=== PATIENT | male | born 1970 | race Caucasian/White ===

== ENCOUNTER → 2016-10-05 | Outpatient (CLI) | payer BC ==
[~2016-10-05] MED LIST: CIPR-255 PO; DOCU-94 PO; LEVO88TA3 PO; LISI40TA PO
[2016-10-05 09:34] LABS: HEMATOCRIT 43.6 % (42-52); MEAN CELL VOLUME 88.8 fL (80-100); MEAN CORPUSCULAR HEMOGLOBIN 29.7 pg (25-34); MEAN CORPUSCULAR HGB CONC 33.5 g/dl (32-36); MEAN PLATELET VOLUME 9.8 fL (7.4-10.4); PLATELET COUNT 199 K/uL (130-400); RED BLOOD COUNT 4.91 M/uL (4.7-6.1); WHITE BLOOD COUNT 6.54 K/uL (4.8-10.8)
[2016-10-05 10:11] LABS: ALT/SGPT 26 U/L (12-78); AST/SGOT 16 U/L (15-37); BLOOD UREA NITROGEN 18 mg/dl (7-18); BUN/CREATININE RATIO 20.3 (10-20); CALCIUM 8.5 mg/dl (8.5-10.1); CARBON DIOXIDE 29 mmol/L (21-32); CHLORIDE 110 mmol/L (98-107); GLUCOSE 99 mg/dl (70-99); POTASSIUM 4.1 mmol/L (3.5-5.1); SODIUM 143 mmol/L (136-145)
[2016-10-05 10:20] LABS: ALB/GLOB RATIO 1.1 (0.9-2); ALKALINE PHOSPHATASE 54 U/L (45-117); CHOLESTEROL 172 mg/dl (0-200); CHOLESTEROL/HDL RATIO 2.8; FERRITIN 225.6 ng/ml (8.0-388.0); HDL CHOLESTEROL 62 mg/dl; LDL CHOLESTEROL CALCULATED 99 mg/dl; TRIGLYCERIDES 56 mg/dl (0-150); VERY LOW DENSITY LIPOPROT CALC 11 mg/dl
== END | disposition home or self-care (01) ==
LOC: C.LAB1850 08:18
PROVIDERS: ATTEND Family Medicine
DX: R31.9 Hematuria, unspecified (principal); K57.90 Diverticulosis of intestine, part unspecified, without perforation or abscess without bleeding; E03.9 Hypothyroidism, unspecified; R53.83 Other fatigue; Z13.9 Encounter for screening, unspecified

== ENCOUNTER → 2017-12-02 | Outpatient (CLI) | payer BC ==
--- NOTE | 2017-12-02 14:08 | DIAGNOSTIC IMAGING REPORT ---
L SHOULDER MIN 2 VIEWS CLINICAL HISTORY: Left shoulder pain. COMPARISON: Left shoulder radiograph September 27, 2010. FINDINGS: Alignment of the left shoulder is anatomic. There is no fracture or suspicious lesion. There is joint space narrowing and osteophytosis of the acromioclavicular joint. The glenohumeral joint space is preserved. IMPRESSION: 1. No acute fracture or dislocation of the left shoulder. 2. Mild to moderate osteoarthritis of the left acromioclavicular joint. Electronically signed by: Miguel Aguirre M.D. 12/02/2017 2:06 PM Dictated Date/Time: 12/02/2017 2:00 PM
== END | disposition home or self-care (01) ==
LOC: C.RDSM 13:25
PROVIDERS: ATTEND Physician Assistant
DX: M19.012 Primary osteoarthritis, left shoulder (principal)

== ENCOUNTER → 2017-12-11 | Outpatient (CLI) | payer BC ==
[~2017-12-11] MED LIST changes: +GADAVIST IV PRN
--- NOTE | 2017-12-11 12:04 | DIAGNOSTIC IMAGING REPORT ---
LEFT SHOULDER INJECTION UNDER FLUOROSCOPIC GUIDANCE CLINICAL HISTORY: Left shoulder pain. Injection for MR arthrogram. PROCEDURE: The risks, benefits, and alternatives to the procedure were discussed with the patient. Written informed consent was obtained. The patient was placed supine on the fluoroscopy table, and a left shoulder injection was performed under fluoroscopic guidance. The area was prepped and draped in the usual sterile fashion. The skin and soft tissues anesthetized with local 1% lidocaine. The left shoulder joint was accessed utilizing a 22-gauge needle, and approximately 6 cc of a mixture of gadolinium contrast, Optiray 300, and saline was injected into the joint space under fluoroscopic guidance. There was normal distention of the capsule. A single spot fluoroscopic image was captured. The procedure was well tolerated and without immediate complication. The patient was then transferred to MRI for MR arthrography. FLUOROSCOPY TIME: 31 seconds. IMPRESSION: Successful injection of the left shoulder under fluoroscopic guidance. Electronically signed by: Macario Severino M.D. 12/11/2017 12:02 PM Dictated Date/Time: 12/11/2017 12:01 PM
--- NOTE | 2017-12-11 12:48 | DIAGNOSTIC IMAGING REPORT ---
LEFT SHOULDER MRI with INTRA-ARTICULAR CONTRAST HISTORY: Left SHOULDER PAIN TECHNIQUE: Multiplanar multisequence MRI of the left shoulder was performed following the intra-articular injection of contrast. COMPARISON STUDY: Left shoulder 12/02/2017. FINDINGS: AC joint: Moderate AC joint arthrosis to measure by joint space narrowing with subchondral edema. There are small marginal osteophytes. Rotator cuff: The supraspinatus, infraspinatus, teres minor tendons are intact. There is a full-thickness tear at the majority of the distal subscapularis tendon without significant retraction. Labrum: Truncated and abnormal signal within the posterior superior labrum consistent with a tear. There is also fraying of the inferior labrum secondary to degeneration/tear. Biceps: Medial dislocation of the long head of the biceps tendon which is anterior to the glenohumeral joint and extends through the full-thickness tear of the subscapularis tendon. There is also increased T2 signal within the proximal long head of the biceps tendon consistent with a partial tear. Bones: No fracture or dislocation. Cartilage: Intact Miscellaneous: Best seen on coronal image 11 there is a tear of the posterior fibers of the inferior glenohumeral ligament. This is consistent with humeral avulsion of the glenohumeral ligament (HAGL). IMPRESSION: 1. Medial dislocation of the partially torn long head of the biceps tendon which is anterior to the glenohumeral joint and extends through the full-thickness tear of the subscapularis tendon. 2. Labral tears as described above. 3. Tear through the posterior fibers of the inferior glenohumeral ligament (HAGL). Electronically signed by: Adan Rodrigues M.D. 12/11/2017 12:46 PM Dictated Date/Time: 12/11/2017 12:29 PM
== END | disposition home or self-care (01) ==
LOC: C.MRIBC 10:41
PROVIDERS: ATTEND Physician Assistant
DX: M75.82 Other shoulder lesions, left shoulder (principal); S46.112A Strain of muscle, fascia and tendon of long head of biceps, left arm, initial encounter; X58.XXXA Exposure to other specified factors, initial encounter; S46.012A Strain of muscle(s) and tendon(s) of the rotator cuff of left shoulder, initial encounter; S43.432A Superior glenoid labrum lesion of left shoulder, initial encounter

== ENCOUNTER → 2017-12-24 | Day surgery (SDC) | payer BC ==
[2017-12-20 08:30] VITALS: Ht 170.2 cm; Wt 83.6 kg
[~2017-12-24] VITALS: Ht 170.2 cm; Wt 83.6 kg
[~2017-12-24] MED LIST changes: +ATROPINE SULFATE 0.1 MG/ML 5ML SYR IV PRN; +BUPR150T5 PO; +CEFAZOLIN 2000MG IV PUSH 15 ML IV SCH; +CHOL100010 PO; -CIPR-255 PO; +DEXAMETHASONE SOD INJ 4 MG/ML VIAL ONE; -DOCU-94 PO; +EpHEDrine SULFATE INJ 50 MG/ML AMP IV PRN; +EpINEphrine INJ 1MG/ML AMP 1 MG/ML AMP ONE; +FENTANYL CITRATE INJ 50 MCG/1 ML 2 ML VIAL ONE; -GADAVIST IV PRN; +HYDR12.55 PO; +HYDROmorphone INJ 2 MG/ML SYR/VIAL IV PRN; +KETOROLAC TROMETHAMINE 30 MG/ML VIAL IV. PRN; +LACTATED RINGER'S 1000ML 1,000 ML IV SCH; +LEVO150T9 PO; -LEVO88TA3 PO; +LIDOCAINE 2% 20 MG/ML 5ML SYR ONE; +LIDOCAINE HCL 1% MPF 2 ML VIAL ONE; +MIDAZOLAM HCL 1 MG/ML 2ML VIAL ONE; +OMEG10007 PO; +ONDANSETRON INJ 2 MG/ML 2 ML VIAL IV PRN; +ONDANSETRON INJ 2 MG/ML 2 ML VIAL ONE; +OXYCODONE/ACETAMINOPHEN 5-325 TAB PO ONE; +PHENYLEPHRINE 100MCG/ML 5ML SYR IV PRN; +PHENYLEPHRINE HCL INJ 10 MG/ML VIAL ONE; +PROPOFOL IV EMULSION 10 MG/ML 20 ML VIAL ONE; +ROPIVACAINE 0.5% 5 MG/ML 30 ML VIAL ONE; +SODIUM CHLORIDE 0.9% 1000ML 1,000 ML IV SCH
--- NOTE | 2017-12-24 06:49 | Discharge Instructions ---
Discharge Instructions Date of Service Dec 24, 2017. Visit Reason for Visit: Left Shoulder Subscapularis Tear, Biceps Tear Discharge Discharge Diagnosis / Problem: same Discharge Goals Goal(s): Improve function, Improve disease control Medications Stopped Medications Name(s): na Restart Stopped Medication(s): use scripts as directed Activity Recommendations Activity Limitations: as noted below Lifting Limitations: until after follow-up appointment Exercise/Sports Limitations: until after follow-up appointment May Resume Sexual Activity: when tolerated Shower/Bathe: keep incision dry Driving or Machine Use: Anesthesia . Post Anesthesia Instructions: If you have had General Anesthesia or IV Sedation: * Do not drive today. * Resume driving when surgeon permits. * Do not make important decisions or sign legal documents today. * Call surgeon for: 1. Temperature elevations greater than 101 degrees F. 2. Uncontrollable pain. 3. Excessive bleeding. 4. Persistent nausea and vomiting. 5. Medication intolerance (nausea, vomiting or rash). * For nausea and vomiting use only clear liquids such as: tea, soda, bouillon until nausea subsides, then gradually increase diet as tolerated. * If you have any concerns or questions, call your surgeon's office. If physician is unavailable and it is an emergency, call 911 or go to the nearest emergency room. . Instructions / Follow-Up Instructions / Follow-Up The following are instructions to follow after "Shoulder Surgery" including, Acromioplasty, Rotator Cuff Repair and Instability Surgery ACTIVITY RECOMMENDATIONS: * Minimize activity after surgery. * No excessive walking, jogging, sports or laboring. * Return to activity is individualized depending on the patient and type of surgery. * Driving is not permitted until at least your first post operative visit. Please ask your doctor when it is safe to resume driving. * Expect increased discomfort with increased activity. Continue to ice the shoulder as needed. SCHOOL/WORK RECOMMENDATIONS: * You may return to sedentary work or school when you are feeling more comfortable. This is usually 3-7 days after surgery. MEDICATIONS: * You will have a prescription for pain medication and an anti-inflammatory medication after surgery. * Use the pain medication for severe pain and the anti-inflammatory for less severe pain. Once the pain medication has run out, try to use the anti-inflammatory medication. If this is not effective, contact the office for assistance. * The pain medication may cause nausea, constipation and drowsiness. You should see how they affect you before driving or similar activity. * The anti-inflammatory medication may cause stomach upset and bleeding. If this occurs let your doctor know immediately . * Take a stool softener like Colace or a laxative like Senokot to prevent constipation. DIET: * Resume previous diet. SPECIAL CARE: ICE: You have the option of an ice cooler, gel packs or ice bags. * If you have an ice cooler, refer to the instructions for that device. The ice cooler may be used continuously. * If you do not have an ice cooler, you will need to use ice bags or gel packs. Do not apply ice directly to the skin. Use a thin dressing or adonay shirt between the skin and ice bag. Apply ice for 20-30 minutes and repeat every 2-4 hours. This is especially important for the first 7-10 days after surgery. Once the pain improves, use ice as needed. ELEVATION: * You may be more comfortable sleeping in an upright position. Use the sling to elevate your arm. DRESSING: * Your dressing will be changed at your first therapy appointment approximately 4-5 days after surgery. Band-aids, tape strips or gauze may be applied. You may then change your dressing daily. * Reapply dressing followed by the EBIce cooling pad (if chosen) and then the sling. * Always wash your hands prior to touching the incision area. * Once the stitches are removed, you may leave the wound open to air or cover with gauze. * Expect some bloody drainage for the first few days after surgery. * Leave the tape strips, if present, in place for 5-7 days. * Band-aids and gauze may be changed daily. * There may be a gauze pad in your armpit area. This can be changed daily or replaced by a dry washcloth. SLING/BRACE: * You will need to use a sling or brace after surgery. The length of time the sling is used is dependent upon the type of surgery performed. * Arthroscopic Acromioplasty requires use of the sling for 2-4 weeks for comfort. * Labral procedures and Rotator Cuff Repairs require use of the sling for a longer period of time. Please check with your doctor prior to discontinuing the sling. BATHING: * You may shower or sponge-bathe immediately after surgery. The post operative shoulder dressing is mostly water-tight. You may shower right over this dressing, but be reasonably careful not to get the gauze or incision wet. * Once the dressing has been changed on the fourth or fifth day after surgery, you may shower and get the incision wet. * Wash with regular soap and water. * Do not bathe (submerge the incision), soak, swim or use a hot tub until the incision is completely healed over with normal skin and the doctor has given the OK to proceed. * There is no need to apply any ointments, powders or salves to your incision. * Do not apply alcohol or hydrogen peroxide directly to the incision. * Diluted peroxide (50:50 mixture with sterile saline) may be used to clean dried blood from around the incision area. THERAPY: * You will begin therapy four or five days after surgery. * Organized therapy with the therapist is important for the first 2-4 months after surgery depending on the type of procedure. During that time you will attend therapy 1-3 times per week. * You will also need to do daily exercises for range of motion and strength as instructed. * Patients who have a Capsular Shift Procedure will need to abide by temporary range of motion limitations. * Patients having Rotator Cuff Surgery are not allowed to actively lift their arms until 4-6 weeks after surgery. * Please check with your doctor regarding appropriate motion restrictions. FOLLOW UP VISIT: * If not already scheduled, please call the office at to schedule a follow-up appointment for 10 days after surgery and monthly thereafter. Diet Recommendations Recommended Home Diet: resume previous diet Procedures Procedures Performed: see op note Pending Studies Studies pending at discharge: no Medical Emergencies . Who to Call and When: Medical Emergencies: If at any time you feel your situation is an emergency, please call 911 immediately. . Non-Emergent Contact Non-Emergency issues call your: Specialist Call Non-Emergent contact if: temperature is above 101.5, wound has increased drainage, wound has increased redness, wound has increased pain . . "Provider Documentation" section prepared by Fermin Woo. .
--- NOTE | 2017-12-24 07:42 | History & Physical Bridge Note ---
H&P Re-Evaluation Bridge Note: I have examined the patient, reviewed the History & Physical and in the interval since the performance of the History & Physical I have noted the following changes of clinical significance: consent obtained.No changes noted
--- NOTE | 2017-12-24 11:53 | [facility] Post Operative Brief Note ---
Immediate Operative Summary Operative Date Dec 24, 2017. Pre-Operative Diagnosis LEFT SHOULDER SUBSCAPULARIS TEAR, BICEPS long head subluaxtion Post-Operative Diagnosis SAME PREOP Procedure(s) Performed Left Shoulder Open Rotator Cuff Repair and Biceps Tenodesis Surgeon DR. Tyson JULIAN Lead Applier Surgeon(s) NILSON CAMARILLO PA-C Estimated Blood Loss 25 ML Findings Consistent with Post-Op Diagnosis Fluids (cc crystalloids) 800cc Specimens NONE Drains None Anesthesia Type General Regional Complication(s) none Disposition Accompanied Pt To Recover: no Overlapping Procedure I was immediately available: during the entire case
--- NOTE | 2017-12-24 12:36 | OPERATIVE REPORT ---
DATE OF OPERATION: 12/24/2017 SURGEON: Fermin Woo MD TOOL DESIGN ENGINEER: Paxton Dukes PA-C. No resident or fellow available. PREOPERATIVE DIAGNOSIS: Subscapularis tendon tear, high grade with biceps long head subluxation. POSTOPERATIVE DIAGNOSIS: Subscapularis tendon tear, high grade with biceps long head subluxation. OPERATION PERFORMED: Arthrotomy, left shoulder with primary repair of subscapularis tendon tear and open biceps tenodesis. Exam under anesthesia. 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 At this point in time, he has asymmetric external rotation indicating the instability of the subscap. He wants to proceed with surgical treatment. DESCRIPTION OF PROCEDURE: The patient appropriately identified, site verified, consent verified, antibiotics confirmed as being given. The shoulder was examined revealing no instability. He did have about 25 degrees of increased external rotation, the left side versus the right side. He was then sterilely prepped and draped in usual routine fashion with the patient in the slight beach chair position. An anterior approach to the shoulder was then made in the deltopectoral groove. Appropriate retractors made. Bleeding controlled with electrocautery. One could see the bulging tenosynovium of the rotator interval and the long head of the biceps. This was carefully opened and about 85% of the subscapularis was detached. This was then mobilized and freed and tagged and thus the biceps long head was then mobilized and freed and tagged, it was dislocated medially into the joint. The knee was then transected off of the glenoid. The area was then irrigated. Bone soft tissue was cleaned over the lesser tuberosity and the groove. Three threaded Arthrex anchors were then placed. They were double loaded. They were 4.5 mm. They were tapped. They were all placed, one superior in the tuberosity, one inferior to tuberosity and one in distal to the groove of the subscap in the biceps groove. These were then all placed and using the scorpion the sutures passed and the tendon of the subscap repaired back down nicely, the rotator interval was then closed superiorly just for the lateral 1 cm. This offered anatomic restorationism of the subscap. The biceps tendon was then tenodesed with double-loaded anchor down to the groove. This was all freshened up to get bleeding bone in that area and then additional sutures that were left tightened in this area to seal off the whole area tenodesing the biceps very well. The stitch on the biceps was a double-loaded baseball stitch. These were 4.5 corkscrew anchors double loaded. The wound was then irrigated. The repair was excellent, anatomic and strong. The arm could be placed through a full range of motion, flexion, extension at the elbow and belly to 30 degrees of external rotation with no undue tension on the repair. The wound was irrigated one final time and then closed with 2-0 plain and running subcuticular 2-0 Prolene. ESTIMATED BLOOD LOSS: 25 mL. CRYSTALLOID: 800 mL. No DVT prophylaxis. No pathology pending. I attest to the content of the Intraoperative Record and any orders documented therein. Any exception s are noted below.
[2017-12-24 12:45] VITALS: TEMP 37
--- NOTE | 2017-12-24 12:50 | [facility] Operative Report ---
Operative Report Operative Date Dec 24, 2017. Pre-Operative Diagnosis LEFT SHOULDER SUBSCAPULARIS TEAR, BICEPS long head subluaxtion Post-Operative Diagnosis LEFT SHOULDER SAME PREOP Procedure(s) Performed Left Shoulder Open Rotator Cuff Repair and Biceps Tenodesis Surgeon DR. Tyson JULIAN Buyer Agent Surgeon(s) HENRIETTA CAMARILLO PA-C Estimated Blood Loss 25 ML Findings Left shoulder subscapularis rotator cuff tear and biceps tendon tear Fluids 800cc Specimens NONE Drains None Anesthesia Type General Regional Complication(s) none Disposition no Indications This 47-year-old white male presented to the office with complaints of severe left shoulder pain that developed after lifting heavy piece of machinery. He was having difficulty with motion and loss of strength. He elected to proceed with surgical intervention after being educated about potential risks and outcomes. Preoperative imaging was obtained. Description of Procedure Patient was administered a regional block and then taken to the operating room where he was given general anesthesia. He was prepped and draped in usual sterile fashion. Please see Dr. Julian's operative report for specifics of the procedure. I was present for the entire case from initial patient positioning through final wound closure. Assistance was provided in tissue retraction, hemostasis, hardware placement, and final wound closure. Patient was taken to the recovery room in satisfactory condition. I attest to the content of the Intraoperative Record and any orders documented therein. Any exceptions are noted below.
--- NOTE | 2017-12-24 13:02 | Anesthesia Progress Nt - [facility] ---
Anesthesia Post Op Note Date & Time Dec 24, 2017 at 13:01 Vital Signs Pain Intensity: 0 Vital Signs Past 12 Hours Date Time Temp Pulse Resp B/P (MAP) Pulse Ox O2 Delivery O2 Flow Rate FiO2 12/24/17 12:45 37.0 64 18 134/84 (101) 98 Room Air 12/24/17 12:32 66 20 12/24/17 12:32 65 20 95 12/24/17 12:31 150/98 12/24/17 12:30 36.5 62 16 150/98 96 Room Air 12/24/17 12:27 65 15 95 12/24/17 12:27 65 15 12/24/17 12:26 144/89 12/24/17 12:22 67 18 97 12/24/17 12:22 66 18 12/24/17 12:21 140/89 12/24/17 12:17 62 14 12/24/17 12:17 61 14 100 12/24/17 12:16 137/91 12/24/17 12:12 65 14 12/24/17 12:12 64 14 100 12/24/17 12:11 143/95 12/24/17 12:07 66 23 12/24/17 12:07 66 23 99 12/24/17 12:06 138/93 12/24/17 12:02 67 14 100 12/24/17 12:02 66 14 12/24/17 12:01 161/107 12/24/17 11:57 73 18 98 12/24/17 11:57 75 18 12/24/17 11:55 144/88 12/24/17 11:54 36.3 75 14 144/88 97 Mask 5 12/24/17 10:37 31 12/24/17 10:36 147/81 12/24/17 10:35 70 30 100 12/24/17 10:35 72 12/24/17 10:31 138/82 12/24/17 10:30 67 18 100 12/24/17 10:30 68 12/24/17 10:26 135/84 12/24/17 10:25 71 12/24/17 10:25 72 19 100 18 10:21 130/82 12/24/17 10:20 67 12/24/17 10:20 66 18 100 12/24/17 10:16 139/86 12/24/17 10:15 72 18 10:15 73 22 100 18 10:11 129/84 12/24/17 10:10 69 18 100 12/24/17 10:10 70 18 10:06 133/88 12/24/17 10:05 68 12/24/17 10:05 68 18 100 12/24/17 10:01 134/81 12/24/17 10:00 72 18 100 12/24/17 10:00 70 12/24/17 09:56 127/87 12/24/17 09:55 66 12/24/17 09:55 67 16 100 12/24/17 09:51 132/86 12/24/17 09:50 71 12/24/17 09:50 72 22 100 12/24/17 09:46 133/81 12/24/17 09:45 72 12/24/17 09:45 71 18 100 12/24/17 09:41 130/84 12/24/17 09:40 71 12/24/17 09:40 71 15 100 12/24/17 09:36 133/92 12/24/17 09:35 66 18 100 12/24/17 09:35 65 12/24/17 09:31 141/87 12/24/17 09:30 66 25 100 12/24/17 09:30 65 12/24/17 09:26 151/96 12/24/17 09:25 74 21 12/24/17 09:23 150/89 12/24/17 07:53 36.8 66 16 140/85 (103) 98 Room Air Notes Mental Status: alert / awake / arousable, participated in evaluation Pt Amnestic to Procedure: Yes Nausea / Vomiting: adequately controlled Pain: adequately controlled Airway Patency, RR, SpO2: stable & adequate BP & HR: stable & adequate Hydration State: stable & adequate Anesthetic Complications: no major complications apparent
[2017-12-24 13:11] VITALS: BP 120/80; PULSE 66; O2SAT 96
== END | disposition home or self-care (01) ==
LOC: X.SURG 07:38
PROVIDERS: ATTEND Physical Medicine & Rehabilitation Sports Medicine
DX: S43.82XA Sprain of other specified parts of left shoulder girdle, initial encounter (principal); S46.112A Strain of muscle, fascia and tendon of long head of biceps, left arm, initial encounter; X50.0XXA Overexertion from strenuous movement or load, initial encounter; I10 Essential (primary) hypertension; Z79.899 Other long term (current) drug therapy; E02 Subclinical iodine-deficiency hypothyroidism